=== PATIENT | female | born 1965 | race Caucasian/White ===

== ENCOUNTER 2017-08-17 08:15 | Day surgery (SDC) | payer BC ==
[~2017-08-17 08:15] MED LIST: ACETAMINOPHEN 1,000 MG/100 ML BTL IV ONE; CLINDAMYCIN 600MG/50ML PREMIX 600 MG/50 ML BAG IVPB ONE
[2017-08-17] MEDS ORDERED: SEVOFLURANE 250 ML INH ONE (08:16)
[2017-08-17] MEDS ORDERED: MIDAZOLAM HCL 2MG/2ML VIAL IV ONE (08:16)
[2017-08-17] MEDS ORDERED: KETOROLAC 30 MG/ML VIAL IVP ONE (08:16)
[2017-08-17] MEDS ORDERED: DEXAMETHASONE 4 MG/ML 1ML VIAL IVP ONE (08:16)
[2017-08-17] MEDS ORDERED: EPHEDRINE SULFATE 50 MG/ML ML IV ONE (08:16)
[2017-08-17] MEDS ORDERED: ROPIVACAINE HCL (NAROPIN) /PF 5MG/ML 20ML VIAL IV ONE (08:16)
[2017-08-17] MEDS ORDERED: BUPIVACAINE 0.5% W/EPI MPF 30 ML VIAL IVP ONE (08:16)
[2017-08-17] MEDS ORDERED: PROPOFOL 10 MG/ML VIAL IV ONE (08:16)
[2017-08-17] MEDS ORDERED: BUPIVACAINE LIPOSOME 266MG/20ML VIAL IV ONE (08:16)
[2017-08-17] MEDS ORDERED: EPINEPHRINE 1 MG/ML AMPUL SQ ONE (08:16)
[2017-08-17] MEDS ORDERED: LIDOCAINE 1% MDV (10MG/ML) 20ML VIAL SQ ONE (08:16)
--- NOTE | 2017-08-18 07:55 | Operative Note ---
DATE OF SURGERY: 08/17/2017. PREOPERATIVE DIAGNOSES: 1. LEFT SHOULDER POSSIBLE ROTATOR CUFF TEAR. 2. ACROMIOCLAVICULAR JOINT ARTHROSIS. 3. IMPINGEMENT. POSTOPERATIVE DIAGNOSES: 1. TYPE II SLAP LESION. 2. IMPINGEMENT TENDINITIS. 3. ACROMIOCLAVICULAR JOINT ARTHROSIS. OPERATION: 1. Diagnostic arthroscopy. 2. Arthroscopic acromioplasty with subacromial decompression. 3. Arthroscopic excision of the distal clavicle and acromioclavicular joint. 4. Arthroscopic debridement of type II SLAP lesion. 5. Arthroscopic biceps tenotomy. SURGEON: Evangelist Garza M.D. ANESTHESIA: General endotracheal, Neha Kent CRNA. COMPLICATIONS: None. ESTIMATED BLOOD LOSS: Minimal. OPERATIVE FINDINGS: A type II SLAP lesion, slightly frayed biceps tendon, intact bursa and intra-articular surface of the rotator cuff, acromioclavicular joint arthrosis, impingement tendinitis. INDICATIONS: This is a 52-year-old female who is well known to myself. She is status post right shoulder partial bursal surface rotator cuff repair done years ago, and now she is scheduled for the left. She had an ultrasound that showed possible partial-thickness tear and scheduled for the procedures above. I explained to her all risks and benefits of surgery in detail for the diagnosis and procedures including but not limited to infection, nerve injury, vessel injury, persistent pain, stiffness, numbness and tingling in her shoulder , retear of the rotator cuff, and the need for further procedures. All of her questions were answered. The treatment and course were outlined, and she agreed to proceed. PROCEDURE: The patient brought to the operating room, placed in the beach chair position, and prepared for surgery. General endotracheal anesthesia was induced. Her left upper extremity and shoulder were prepped and draped in sterile fashion. The left shoulder was prepped again with ChloraPrep and draped. Intraoperative time out was performed. Next, her subacromial space, acromioclavicular joint, and glenohumeral joint were injected with 0.5% Marcaine with epinephrine. A standard posterior arthroscopic portal was established with two incisions inferior 1.0 cm posterolateral to the acromion. An anterior portal was established with the rotator under direct visualization, and diagnostic arthroscopy was performed. The biceps tendon was slightly frayed and was otherwise normal. The superior labrum was torn, and a type II SLAP lesion was very redundant and flipping in the joint. I medially debrided that with a shaver to a smooth and stable surface. I medially tenotomized and released the biceps tendon from its attachment site. I debrided some of the glenoid rim bone top superiorly for healing. The posterosuperior labrum was normal. Axial recess was normal. Posteroinferior labrum was normal. The glenohumeral head and articular cartilage were normal. The undersurface of the rotator cuff was thoroughly inspected. It was normal from the biceps tendon and posteroinferior to the barrier. The superior and middle glenohumeral labrum was intact. The subscapular tendon and subscapular recess were normal. The anterior and inferior labrum and glenohumeral head were normal. Next, the anterior and posterior subacromial portal was established. The tissue blade was placed in the subacromial portal. The subacromial bursa was resected. I outlined the anterolateral acromion and coracoacromial ligament and completely opened up the inferior acromioclavicular joint capsule. Next, the lateral portal was established off the posterior margin of the acromioclavicular joint. I inserted the shaver there and resected the bursa around the periphery of the rotator cuff and subacromial space. Next, I inserted a tissue blade in the anterior portal and bladed the subacromial bursa. I outlined the anterolateral acromion, and loosened the acromioclavicular completely opening it up to free the joint capsule. Next, the bur was inserted in the lateral portal and took off strips of bone from the acromion, working from lateral to medial, anterior to posterior converting the type II acromion to a planar surface. We used a rasp to smooth the subacromial surface and verified it was flat with the probe from the portal. Next, the bur was inserted in the anterior portal and I burred down to the medial acromial facet. Resected the distal clavicle 1.0 cm and made small stab incision superior to the acromioclavicular joint. I inserted the shaver there and smoothed both bony surfaces. Verified the acromioclavicular joint was completely free of any impingement or bony fragments. Next, we thoroughly inspected the bursa of the rotator cuff. The bursa of the rotator cuff was completely intact. There was no evidence of any partial- or full-thickness tears here after thorough inspection. This completed our procedures. The scope and equipment were removed. The scope incisions were covered with Xeroform gauze. A sterile dressing was applied as well as UltraSling and ice cooler wrap. The patient tolerated the procedures well. No intraoperative complications. All sponge, needle, and blade counts were correct. Recovery room stable, neurovascularly intact. She will be discharged as an outpatient with Health system therapy and nurse. She will follow up in two weeks. JOB NUMBER: [id number] cc: Teo Bermudez
== END 2017-08-17 13:40 | disposition home or self-care (01) ==
LOC: SUR 08:15
PROVIDERS: ATTEND Orthopaedic Surgery
DX: S43.432A Superior glenoid labrum lesion of left shoulder, initial encounter (principal); M19.012 Primary osteoarthritis, left shoulder; I10 Essential (primary) hypertension
CPT/HCPCS: 29807; 29826; 29824; 23405; 01630; J1885; C9290; J2795; J0171

== ENCOUNTER 2018-10-27 21:30 | Emergency (ER) | payer BC ==
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
[2018-10-27] MEDS: TOPICAL LIDOCAINE W/ EPI 5 ML TOP ONE (21:49)
[2018-10-27] MEDS: Diph,Pert(Acell),Tet Vac 0.5 ML SYR IM ONE (22:23)
== END 2018-10-27 22:28 | disposition home or self-care (01) ==
LOC: ER 21:30
DX: S01.81XA Laceration without foreign body of other part of head, initial encounter (principal); W54.1XXA Struck by dog, initial encounter; Y92.009 Unspecified place in unspecified non-institutional (private) residence as the place of occurrence of the external cause; I10 Essential (primary) hypertension
CPT/HCPCS: 90715; 96372; 99283